=== PATIENT | female | born 1955 | race Caucasian/White ===

== ENCOUNTER → 2016-08-08 | Outpatient (CLI) | payer MEDICARE, MEDICAID ==
[~2016-08-08] MED LIST: ABILIFY5 MG PO; ADVAIR DIS1 PUFF/DO2 IH; BUSPAR DPS10 MG PO; COGENTIN DPS1 MG PO; DELTASONE DPS10 MG PO; DUONEB DPS3 ML IH; MAALOX DPS30 ML PO; NORVASC DPS10 MG PO; ONE DAILY WITH1 EAC1 PO; PROTONIX40 MG PO; RISPERDAL3 MG PO; SURFAK DPS240 MG PO; SYNTHROID DPS0.15 MG PO; TYLENOL DPS325 MG PO; TYLENOL EXTRA500 M1 PO
== END | disposition home or self-care (01) ==
LOC: PTH.S 07-30 08:15
DX: Z51.81 Encounter for therapeutic drug level monitoring (principal); Z79.899 Other long term (current) drug therapy